=== PATIENT | female | born 1975 | race Caucasian/White ===

== ENCOUNTER 2017-04-21 01:42 | Emergency (ER) | payer MEDICAID ==
[~2017-04-21] VITALS: Ht 170.2 cm; Wt 55.5 kg
[2017-04-21 03:14] VITALS: BP 131/88
== END 2017-04-21 03:14 | disposition home or self-care (01) ==
LOC: ED 01:42
DX: H05.011 Cellulitis of right orbit (principal); I10 Essential (primary) hypertension; M79.7 Fibromyalgia; Z86.14 Personal history of Methicillin resistant Staphylococcus aureus infection

== ENCOUNTER 2017-11-04 18:11 | Emergency (ER) | payer MEDICAID ==
[~2017-11-04] VITALS: Ht 167.6 cm; Wt 61.2 kg
[2017-11-04 21:24] VITALS: BP 149/82
== END 2017-11-04 21:24 | disposition home or self-care (01) ==
LOC: ED 18:11
DX: R22.0 Localized swelling, mass and lump, head (principal); H44.002 Unspecified purulent endophthalmitis, left eye
CPT/HCPCS: J2001; J3010

== ENCOUNTER 2017-11-07 02:47 | Emergency (ER) | payer MEDICAID ==
[~2017-11-07] VITALS: Ht 167.6 cm; Wt 61.2 kg
[2017-11-07 03:10] VITALS: Ht 167.6 cm; Wt 61.2 kg
[2017-11-07 03:56] VITALS: BP 164/99
== END 2017-11-07 03:56 | disposition home or self-care (01) ==
LOC: ED 02:47
DX: Z48.01 Encounter for change or removal of surgical wound dressing (principal); I10 Essential (primary) hypertension; Z88.8 Allergy status to other drugs, medicaments and biological substances

== ENCOUNTER 2017-12-24 09:45 | Emergency (ER) | payer MEDICAID ==
[~2017-12-24] VITALS: Ht 170.2 cm; Wt 60.8 kg
[2017-12-24 09:51] VITALS: Ht 170.2 cm; Wt 60.8 kg
[2017-12-24 12:07] VITALS: BP 135/94
== END 2017-12-24 12:07 | disposition home or self-care (01) ==
LOC: ED 09:45
DX: J20.9 Acute bronchitis, unspecified (principal); I10 Essential (primary) hypertension; F41.9 Anxiety disorder, unspecified; Z88.8 Allergy status to other drugs, medicaments and biological substances; Z90.89 Acquired absence of other organs
CPT/HCPCS: J7512; J7613

== ENCOUNTER 2020-02-28 13:32 | Emergency (ER) | payer MEDICAID ==
[~2020-02-28] VITALS: Ht 167.6 cm; Wt 68.0 kg
[2020-02-28 13:41] VITALS: Ht 167.6 cm; Wt 68.0 kg
[2020-02-28 14:24] LABS: BASOPHIL % 0.6 % (0-2); PLATELET COUNT 351 x10^3mcL (130-400); RED CELL DISTRIBUTION WIDTH 13.2 % (11.5-14.5)
[2020-02-28 14:25] LABS: CALCIUM 8.5 mg/dL (8.5-10.1); CHLORIDE SERUM 106 mmol/L (98-107); GFR1 > 60 mL/min; GLUCOSE SERUM 187 mg/dL (74-106); POTASSIUM SERUM 3.9 mmol/L (3.5-5.1); SODIUM SERUM 142 mmol/L (136-145)
[2020-02-28 14:37] LABS: ALBUMIN 3.8 g/dL (3.4-5.0); ALKALINE PHOSPHATASE 41 U/L (46-116); ALT/SGPT 14 U/L (14-59); AST/SGOT 8 U/L (15-37); BILIRUBIN TOTAL 0.2 mg/dL (0.20-1.00); FREE T4 0.97 ng/dL (0.76-1.46); TOTAL PROTEIN, SERUM 7.1 g/dL (6.4-8.2)
[2020-02-28 16:57] VITALS: BP 147/85
== END 2020-02-28 16:57 | disposition home or self-care (01) ==
LOC: ED 13:32
PROVIDERS: Emergency Medicine
DX: F41.1 Generalized anxiety disorder (principal); E86.0 Dehydration; I10 Essential (primary) hypertension; R00.2 Palpitations; M79.7 Fibromyalgia
CPT/HCPCS: 84439; J1885; J2060; J7030

== ENCOUNTER 2020-03-01 03:39 | Emergency (ER) | payer MEDICAID ==
[~2020-03-01] VITALS: Ht 167.6 cm; Wt 65.8 kg
[2020-03-01 03:40] VITALS: BP 147/98; Ht 167.6 cm; Wt 65.8 kg
== END 2020-03-01 05:11 | disposition left against medical advice (07) ==
LOC: ED 03:39
DX: Z53.21 Procedure and treatment not carried out due to patient leaving prior to being seen by health care provider (principal)

== ENCOUNTER 2020-03-08 17:45 | Emergency (ER) | payer MEDICAID ==
[~2020-03-08] VITALS: Ht 165.1 cm; Wt 67.6 kg
[2020-03-08 17:53] VITALS: Ht 165.1 cm; Wt 67.6 kg
[2020-03-08 21:06] VITALS: BP 112/66
== END 2020-03-08 21:10 | disposition home or self-care (01) ==
LOC: ED 17:45
DX: S39.012A Strain of muscle, fascia and tendon of lower back, initial encounter (principal); S80.01XA Contusion of right knee, initial encounter; K08.89 Other specified disorders of teeth and supporting structures; I10 Essential (primary) hypertension; M79.7 Fibromyalgia; Z98.890 Other specified postprocedural states; Z88.8 Allergy status to other drugs, medicaments and biological substances; W01.0XXA Fall on same level from slipping, tripping and stumbling without subsequent striking against object, initial encounter; Y93.89 Activity, other specified; Y92.89 Other specified places as the place of occurrence of the external cause; Y99.8 Other external cause status
CPT/HCPCS: J1885; J2060; J7030; Q0162

== ENCOUNTER 2020-06-02 17:34 | Emergency (ER) | payer MEDICAID ==
[~2020-06-02] VITALS: Ht 167.6 cm; Wt 70.3 kg
[2020-06-02 17:44] VITALS: Ht 167.6 cm; Wt 70.3 kg
[2020-06-02 20:06] VITALS: BP 143/95
== END 2020-06-02 20:07 | disposition left against medical advice (07) ==
LOC: ED 17:34
DX: T42.4X1A Poisoning by benzodiazepines, accidental (unintentional), initial encounter (principal); T40.601A Poisoning by unspecified narcotics, accidental (unintentional), initial encounter; I10 Essential (primary) hypertension; Z98.890 Other specified postprocedural states; Z90.89 Acquired absence of other organs; Z88.8 Allergy status to other drugs, medicaments and biological substances; Y92.89 Other specified places as the place of occurrence of the external cause
CPT/HCPCS: G0480